=== PATIENT | male | born 1995 | race Caucasian/White ===

== ENCOUNTER 2017-09-13 14:03 | Emergency (ER) | payer OTHER ==
--- NOTE | 2017-09-13 14:32 | EDM.PDOC ---
ED HPI GENERAL MEDICAL PROBLEM - General Source of Information: Reports: Patient - History of Present Illness Onset: Today Onset Date: 09/13/17 Onset Time: 13:40 Location: Reports: Head (Right forehead) Improves with: Reports: Cold Therapy Associated Symptoms: Denies: Confusion, Headaches, Nausea/Vomiting, Seizure, Syncope, Weakness Treatments PERCHER: Reports: Cold Therapy right frontal forehead Pain Score (Numeric/FACES): 7 - General Chief Complaint: Head Injury Stated Complaint: HEAD INJURY Time Seen by Provider: 09/13/17 14:12 - History of Present Illness INITIAL COMMENTS - FREE TEXT/NARRATIVE: Patient comes in today with complaint of right forehead pain. While patient was at work, a coworker was swinging a hammer when the hammer broke and the head of the hammer struck the patient on the right side of the forehead. The injury occurred at 1:40 today. Patient was wearing a hardhat and goggles, but the hammer struck him between the hat and the goggles. Patient has been keeping ice on the injury. Associated symptoms include eye pain. Patient denies LOC, headache, dizziness, blurry vision, nausea, vomiting, or difficulty with balance. 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 (Mally Bush) - Related Data Allergies Allergy/AdvReac Type Severity Reaction Status Date / Time Penicillins Allergy Other Verified 09/13/17 14:11 Home Meds: Home Meds Cell Dissolver 1 tab PO DAILY 09/13/17 [History] Hcg 3,333 unit INJECT ASDIRECTED 09/13/17 [History] Levothyroxine 125 mcg PO ACBREAKFAST 09/13/17 [History] Past Medical History Neurological History: Reports: Other (See Below) Other Neuro History: brain tumor - Past Surgical History Other Neurological Surgeries/Procedures: removal of brain tumor through nostrils Social & Family History - Family History Family Medical History: Noncontributory - Tobacco Use Smoking Status *Q: Current Some Day Smoker Years of Tobacco use: 4 Packs/Tins Daily: 0.3 - Caffeine Use Caffeine Use: Reports: Soda - Recreational Drug Use Recreational Drug Use: No ED ROS GENERAL - Review of Systems Review Of Systems: See Below Constitutional: Reports: No Symptoms HEENT: Reports: Eye Pain (Right eye), Vision Change (right eye blurry vision) Respiratory: Reports: No Symptoms. Denies: Shortness of Breath Cardiovascular: Reports: No Symptoms. Denies: Chest Pain Skin: Reports: Bruising (Right forehead swelling and bruising) Neurological: Denies: Confusion, Dizziness, Headache, Numbness, Paresthesia, Seizure, Syncope, Tingling, Trouble Speaking, Difficulty Walking, Weakness, Gait Disturbance Psychiatric: Denies: Agitation, Anxiety ED EXAM, HEAD INJURY - Physical Exam Exam: See Below Exam Limited By: No Limitations General Appearance: Alert, WD/WN, No Apparent Distress Head: Facial Ecchymosis, Facial Swelling (Right forehead swelling and eccymosis. Swelling is superior to the right eyebrow, lateral to supraorbital notch, approximatley 4 cm in diameter. No laceration or abrasion is appreciated. ). No: Scalp Abrasions, Active Bleeding, Espinosa's Sign, Facial Abrasions, Facial Lacerations Eyes: Bilateral Eye: EOMI (pain with right lateral gaze and superior gaze), PERRL Nose: Normal Inspection, No Blood. 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 No: Aphasia Skin: Normal Color, Warm/Dry - [place] Coma Score Best Eye Response ([place]): (4) Open Spontaneously Best Verbal Response ([place]): (5) Oriented Best Motor Response ([place]): (6) Obeys Commands [place] Total: 15 Course - Vital Signs Last Recorded V/S: Last Vital Signs Temp 97.7 F 09/13/17 14:03 Pulse 86 09/13/17 14:03 Resp 18 09/13/17 14:03 BP 126/78 09/13/17 14:03 Pulse Ox 100 09/13/17 14:03 - Re-Assessments/Exams Free Text/Narrative Re-Assessment/Exam: 09/13/17 15:51 I assessed the patient myself and I agree with Mally's assessment and plan. His CT shows a scalp hematoma within the right frontal region. No acute intracranial abnormality is seen. No skull fracture is seen. I will discharge him home with no restrictions. (Nick Ryan) Departure - Departure Time of Disposition: 15:12 Condition: Fair - Discharge Information *PRESCRIPTION DRUG MONITORING PROGRAM REVIEWED*: Not Applicable *COPY OF PRESCRIPTION DRUG MONITORING REPORT IN PATIENT ANABEL: Not Applicable - Departure Disposition: Home, Self-Care 01 Clinical Impression: Scalp hematoma Qualifiers: Encounter type: initial encounter Qualified Code(s): S00.03XA - Contusion of scalp, initial encounter - Discharge Information Instructions: Facial or Scalp Contusion, [id number] Referrals: PCP,Not In Area [Primary Care Provider] - Forms: ED Department Discharge Additional Instructions: You have a contusion (bruise) of your scalp. The CT indicates that you do not have an acute bleed in your brain. The CT also shows that you did not break any of the bones of your skull. Please apply ice to the injury for 20 minutes 3-4x/day. If you develop: dizziness, blurry vision, or vomit two or more times please seek medical care. If your symptoms worsen please return to the ED.
--- NOTE | 2017-09-13 14:57 | CT ---
Head CT Technique: Multiple axial sections through the brain were obtained. Intravenous contrast was not utilized. Findings: Soft tissue hematoma is noted within the right frontal scalp. Ventricles along with basal cisterns and sulci over the convexities within normal limits for the patient's age. No abnormal parenchymal densities are seen. No evidence of intracranial hemorrhage. No midline shift or mass effect is seen. No calvarial fracture is identified. Visualized sinuses are clear. Impression: 1. Scalp hematoma within the right frontal region. 2. No acute intracranial abnormality is seen. No skull fracture is seen. Diagnostic code #2
== END 2017-09-13 15:59 | disposition home or self-care (01) ==
LOC: JD.ED 14:03
DX: S00.03XA Contusion of scalp, initial encounter (principal); S00.83XA Contusion of other part of head, initial encounter; Z88.0 Allergy status to penicillin; F17.210 Nicotine dependence, cigarettes, uncomplicated; Z79.899 Other long term (current) drug therapy; W22.8XXA Striking against or struck by other objects, initial encounter; Y99.0 Civilian activity done for income or pay
CPT/HCPCS: 70450; 70450-26; 99284-25